=== PATIENT | female | born 1950 | race Caucasian/White ===

== ENCOUNTER 2020-07-19 21:29 | Emergency (ER) | payer OTHER ==
[~2020-07-19] VITALS: Ht 157.5 cm; Wt 69.8 kg
[2020-07-19] MEDS ORDERED: ASA81BEC PO (21:47)
[2020-07-19] MEDS ORDERED: NORVASC5 MG PO (21:47)
[2020-07-19] MEDS ORDERED: ACID CONTROLLER20 MG PO (21:49)
[2020-07-19] MEDS ORDERED: LISINOPRIL10 MG PO (21:49)
[2020-07-19] MEDS ORDERED: METFORMIN HCL500 MG PO (21:50)
[2020-07-19] MEDS ORDERED: OLANZAPINE7.5 MG PO (21:51)
[2020-07-19] MEDS ORDERED: SIMVASTATIN80 MG PO (21:51)
[2020-07-19 22:33] LABS: ABSOLUTE BASOPHILS 0.1 thou/uL (0.0-0.2); ABSOLUTE EOSINOPHILS 0.1 thou/uL (0.0-0.7); ABSOLUTE LYMPHOCYTES 0.7 thou/uL (0.8-5.3); ABSOLUTE MONOCYTES 0.6 thou/uL (0.0-1.2); ABSOLUTE NEUTROPHILS 4.6 thou/uL (1.6-8.1); BASOPHILS 1.1 %; HEMATOCRIT 39.9 % (37.0-47.0); HEMOGLOBIN 13.3 gm/dL (12.0-15.0); LYMPHOCYTES 12.1 %; MCH 27.8 pg (26.0-34.0); MCHC 33.4 g/dL (28.0-37.0); MCV 83.3 fL (80.0-100.0); MONOCYTES 10.3 %; MPV 8.9 fl. (7.2-11.1); NUCLEATED RBCS 0 /100WBC; PLATELET COUNT* 162 thou/uL (150-400); POLYS 74.5 %; RBC 4.79 mil/uL (4.20-5.00); WBC 6.2 thou/uL (4.0-11.0)
[2020-07-19 22:43] LABS: CALCIUM 10.3 mg/dL (8.5-10.1); POTASSIUM 3.4 mmol/L (3.5-5.1)
[2020-07-19 22:54] LABS: ALBUMIN 4.1 g/dL (3.4-5.0); MAGNESIUM 1.4 mg/dL (1.8-2.4); TOTAL BILIRUBIN 0.4 mg/dL (<0.1-1.0); TOTAL PROTEIN 7.2 g/dL (6.4-8.2)
[2020-07-20 01:25] LABS: URINE BLOOD NEGATIVE (Negative); URINE CLARITY CLEAR; URINE COLOR YELLOW; URINE GLUCOSE-RANDOM 2+ (Negative); URINE KETONES 1+ (Negative); URINE LEUKOCYTES-REFLEX NEGATIVE (Negative); URINE NITRITE-REFLEX NEGATIVE (Negative); URINE PROTEIN NEGATIVE (Negative); URINE SPECIFIC GRAVITY 1.025 (1.005-1.030); URINE UROBILINOGEN 0.2 E.U./dl (0.2-1.0)
[2020-07-20 01:27] LABS: ICTOTEST (BILI CONFIRMATORY) Negative (Negative); URINE BILIRUBIN 1+ (Negative)
[2020-07-20 04:30] LABS: CALCIUM 9.1 mg/dL (8.5-10.1); CREATININE 1.5 mg/dL (0.6-1.3); POTASSIUM 3.5 mmol/L (3.5-5.1)
[2020-07-20 05:45] VITALS: BP 146/61
--- NOTE | 2020-07-21 14:14 | EKG ---
[place] [address] ELECTROCARDIOGRAM REPORT Name: EMA DELGADO Room: [facility]#: [id number] Admission: 07/19/20 Attend Phys: Discharge: 07/20/20 Date of : 50 Date of Service: 07/19/20 2357 Report #: [id number] THIS REPORT FOR: //name// [facility] ED Test Date: 2020-07-19 Test Time: 23:57:48 Pat Name: EMA DELGADO Department: Room: Gender: Deaf/Hard Of Hearing Specialist: [place] : 1950 Requested By: Gloria Lakhani Order Number: [id number] MD: Lex Argueta Measurements Intervals [place] Rate: 61 P: 87 [place]: 202 QRS: 61 QRSD: 105 T: -8 QT: 407 QTc: 410 Interpretive Statements Sinus rhythm Borderline repolarization abnormality Baseline wander in lead(s) I,aVL,V4 No previous ECG available for comparison Electronically Signed On 07-21-2020 14:13:54 CDT by Lex Argueta [email or web address] <ELECTRONICALLY SIGNED> By: Lex Argueta MD, [facility] 07/21/20 1413 2357 2357 Lex Argueta MD, [facility] /EPI
== END 2020-07-20 05:45 | disposition home or self-care (01) ==
LOC: M.ERS 21:29
PROVIDERS: Emergency Medicine
DX: E86.0 Dehydration (principal); Z20.822 Contact with and (suspected) exposure to COVID-19; E83.42 Hypomagnesemia; I10 Essential (primary) hypertension; E11.9 Type 2 diabetes mellitus without complications; K58.9 Irritable bowel syndrome, unspecified; E78.5 Hyperlipidemia, unspecified